=== PATIENT | male | born 1970 | race Hispanic/Latino ===

== ENCOUNTER 2022-04-01 12:09 | Inpatient (IN) | payer SELFPAY ==
[~2022-04-01] VITALS: Ht 184.7 cm; Wt 98.0 kg
[2022-04-01] MEDS ORDERED: MULTIVITAMINS- 12 INJECTION 10 ML, FOLIC ACID MDV 1 MG, THIAMINE HCL INJ 100 MG in SODI... IV ONE (12:30)
[2022-04-01] MEDS ORDERED: SODIUM CHLORIDE 0.9% 1000ML 1,000 ML IV ONE (12:30)
[2022-04-01] MEDS ORDERED: CHLORDIAZEPOXIDE 100 MG AMP IV ONE (12:30)
[2022-04-01 12:34] LABS: BASOPHILS # (AUTO) 0.1 (0.0-0.1); BASOPHILS % 1.9 % (0.0-1.0); EOSINOPHILS # (AUTO) 0.1 (0.0-0.4); EOSINOPHILS % 1.1 % (0.0-6.0); HEMATOCRIT 41.8 % (38.2-49.6); HEMOGLOBIN 14.1 g/dL (14.0-18.0); LYMPHOCYTES # (AUTO) 1.7 (1.0-3.2); LYMPHOCYTES % 22.9 % (18.0-39.1); MEAN CORPUSCULAR HEMOGLOBIN 31.1 pg (28-32); MEAN CORPUSCULAR HGB CONC 33.7 g/dL (31-35); MEAN CORPUSCULAR VOLUME 92.3 fL (81-99); MONOCYTES # (AUTO) 0.7 (0.2-0.8); MONOCYTES % 8.6 % (4.4-11.3); NEUTROPHILS # (AUTO) 4.9 (2.1-6.9); PLATELET COUNT 192 x10e3/uL (140-360); RED BLOOD COUNT 4.53 x10e6/uL (4.3-5.7); RED CELL DISTRIBUTION WIDTH 14.8 % (11.7-14.4)
[2022-04-01 12:40] LABS: INR 1.04; PROTHROMBIN TIME 14.5 seconds (11.9-14.5)
[2022-04-01] MEDS ORDERED: CHLORDIAZEPOXIDE HCL 25 MG CAP PO ONE (12:45)
[2022-04-01 12:47] LABS: ALANINE AMINOTRANSFERASE 32 IU/L (0-55); ALBUMIN 3.5 g/dL (3.5-5.0); ALKALINE PHOSPHATASE 127 IU/L (40-150); ANION GAP 14.4 mmol/L (8-16); BLOOD UREA NITROGEN 5 mg/dL (7-26); BUN/CREATININE RATIO 7 (6-25); CALCIUM 8.3 mg/dL (8.4-10.2); CARBON DIOXIDE 21 mmol/L (22-29); CHLORIDE 104 mmol/L (98-107); CREATININE, SERUM 0.67 mg/dL (0.72-1.25); GLUCOSE 92 mg/dL (74-118); POTASSIUM 3.4 mmol/L (3.5-5.1); SODIUM 136 mmol/L (136-145)
[2022-04-01] MEDS ORDERED: ONDANSETRON HCL INJ 2MG/ML 2ML 2 MG/ML VIAL IV PRN (13:45)
[2022-04-01 15:52] VITALS: BP 138/76
[2022-04-01 16:41] VITALS: BP 138/76
[2022-04-01 16:50] VITALS: BP 138/76
[2022-04-01] MEDS: SODIUM CHLORIDE 0.9% 1000ML 1,000 ML IV SCH ×2 (17:02→21:22)
[2022-04-01] MEDS: LORAZEPAM 1 MG TAB PO PRN ×3 (17:44→19:04)
[2022-04-01] MEDS: CHLORDIAZEPOXIDE HCL 25 MG CAP PO SCH ×2 (17:48→23:51)
[2022-04-01 20:00] VITALS: BP 134/81
[2022-04-01 21:00] VITALS: BP 134/81
[2022-04-01] MEDS: Morphine 2mg Syringe 2 MG/ML SYR IV PRN (23:21)
[2022-04-02] VITALS (8 sets, daily range): BP systolic 125–156; BP diastolic 78–120
[2022-04-02] MEDS: Morphine 2mg Syringe 2 MG/ML SYR IV PRN ×2 (03:40→14:25)
[2022-04-02] MEDS: SODIUM CHLORIDE 0.9% 1000ML 1,000 ML IV SCH ×2 (05:34→21:30)
[2022-04-02] MEDS: CHLORDIAZEPOXIDE HCL 25 MG CAP PO SCH ×3 (05:34→17:36)
[2022-04-02 05:54] LABS: BASOPHILS # (AUTO) 0.1 (0.0-0.1); BASOPHILS % 1.6 % (0.0-1.0); EOSINOPHILS # (AUTO) 0.1 (0.0-0.4); EOSINOPHILS % 1.8 % (0.0-6.0); HEMATOCRIT 41.8 % (38.2-49.6); LYMPHOCYTES # (AUTO) 2.2 (1.0-3.2); MEAN CORPUSCULAR HEMOGLOBIN 30.8 pg (28-32); MEAN CORPUSCULAR HGB CONC 33.5 g/dL (31-35); MEAN CORPUSCULAR VOLUME 91.9 fL (81-99); MONOCYTES # (AUTO) 0.8 (0.2-0.8); NEUTROPHILS # (AUTO) 4.4 (2.1-6.9); NEUTROPHILS % 57.2 % (38.7-80.0); PLATELET COUNT 182 x10e3/uL (140-360); RED BLOOD COUNT 4.55 x10e6/uL (4.3-5.7); RED CELL DISTRIBUTION WIDTH 14.4 % (11.7-14.4)
[2022-04-02] MEDS ORDERED: ACETAMINOPHEN 325 MG TAB PO PRN (06:15)
[2022-04-02 06:21] LABS: ALANINE AMINOTRANSFERASE 27 IU/L (0-55); ALBUMIN 3.2 g/dL (3.5-5.0); ALKALINE PHOSPHATASE 123 IU/L (40-150); ANION GAP 14.1 mmol/L (8-16); BLOOD UREA NITROGEN < 5 mg/dL (7-26); CALCIUM 8.8 mg/dL (8.4-10.2); CARBON DIOXIDE 25 mmol/L (22-29); CHLORIDE 102 mmol/L (98-107); CREATININE, SERUM 0.66 mg/dL (0.72-1.25); GLUCOSE 90 mg/dL (74-118); POTASSIUM 3.1 mmol/L (3.5-5.1); SODIUM 138 mmol/L (136-145)
[2022-04-02 06:24] LABS: BUN/CREATININE RATIO 8 (6-25)
[2022-04-02 08:34] LABS: CLARITY,URINE CLEAR (CLEAR); COLOR,URINE YELLOW (YELLOW)
[2022-04-02 08:35] LABS: KETONES,URINE NEGATIVE (NEGATIVE); LEUKOCYTE ESTERASE ,URINE NEGATIVE (NEGATIVE); NITRITE,URINE NEGATIVE (NEGATIVE); PROTEIN,URINE DIPSTICK NEGATIVE (NEGATIVE)
[2022-04-02 08:36] LABS: URINE UROBILINOGEN 0.2 mg/dL (0.2 - 1)
[2022-04-02 08:49] LABS: WBC,URINE (MAN) 0-5 /HPF (0-5)
[2022-04-02 08:50] LABS: BACTERIA,URINE RARE /HPF; EPITHELIAL CELLS,URINE RARE /LPF
[2022-04-02] MEDS ORDERED: DOCUSATE SODIUM 100 MG CAP PO SCH (09:00)
[2022-04-02] MEDS ORDERED: SENNOSIDES 8.6 MG TAB PO SCH (09:00)
[2022-04-02] MEDS: THIAMINE HCL 100 MG TAB PO SCH (09:37)
[2022-04-02] MEDS ORDERED: NICOTINE 14 MG/EA PATCH TOP SCH (12:00)
[2022-04-02] MEDS ORDERED: ENOXAPARIN SOD INJ 40 MG/0.4 ML SYR SC SCH (17:00)
[2022-04-02] MEDS: LORAZEPAM 1 MG TAB PO PRN (18:52)
[2022-04-03] VITALS: BP 137/91
[2022-04-03] MEDS: CHLORDIAZEPOXIDE HCL 25 MG CAP PO SCH ×2 (00:44→06:42)
[2022-04-03 04:00] VITALS: BP 126/81
[2022-04-03 05:00] LABS: BASOPHILS # (AUTO) 0.1 (0.0-0.1); BASOPHILS % 1.5 % (0.0-1.0); EOSINOPHILS # (AUTO) 0.2 (0.0-0.4); EOSINOPHILS % 2.2 % (0.0-6.0); HEMATOCRIT 40.3 % (38.2-49.6); LYMPHOCYTES # (AUTO) 2.3 (1.0-3.2); LYMPHOCYTES % 33.9 % (18.0-39.1); MEAN CORPUSCULAR HEMOGLOBIN 31.3 pg (28-32); MEAN CORPUSCULAR HGB CONC 34.7 g/dL (31-35); MONOCYTES # (AUTO) 0.7 (0.2-0.8); MONOCYTES % 9.8 % (4.4-11.3); NEUTROPHILS # (AUTO) 3.5 (2.1-6.9); NEUTROPHILS % 52.2 % (38.7-80.0); PLATELET COUNT 165 x10e3/uL (140-360); RED BLOOD COUNT 4.48 x10e6/uL (4.3-5.7); RED CELL DISTRIBUTION WIDTH 14.5 % (11.7-14.4)
[2022-04-03 05:19] LABS: ALANINE AMINOTRANSFERASE 23 IU/L (0-55); ALBUMIN 3.1 g/dL (3.5-5.0); ALBUMIN/GLOBULIN RATIO 0.9 (0.8-2.0); ALKALINE PHOSPHATASE 165 IU/L (40-150); ANION GAP 12.2 mmol/L (8-16); BLOOD UREA NITROGEN < 5 mg/dL (7-26); CARBON DIOXIDE 26 mmol/L (22-29); CHLORIDE 103 mmol/L (98-107); CREATININE, SERUM 0.72 mg/dL (0.72-1.25); GLUCOSE 128 mg/dL (74-118); MAGNESIUM 1.7 MG/DL (1.3-2.1); POTASSIUM 3.2 mmol/L (3.5-5.1); SODIUM 138 mmol/L (136-145)
[2022-04-03] MEDS: SODIUM CHLORIDE 0.9% 1000ML 1,000 ML IV SCH (05:45)
[2022-04-03 05:46] LABS: BUN/CREATININE RATIO 7 (6-25)
[2022-04-03] MEDS ORDERED: CHLORDIAZEPOXID25 MG PO (07:35)
[2022-04-03] MEDS ORDERED: B-1100 MG PO (07:35)
[2022-04-03] MEDS ORDERED: NICODERM CQ1 EAC1 TOP (07:35)
[2022-04-03] MEDS ORDERED: POTASSIUM CHLORIDE 20 MEQ TAB CR PO ONE (07:45)
[2022-04-03] MEDS: THIAMINE HCL 100 MG TAB PO SCH (08:20)
[2022-04-03 08:30] VITALS: BP 120/80
== END 2022-04-03 08:49 | disposition home or self-care (01) | DRG 897 ==
LOC: ER 12:15 → ERHOLD 13:37 → MED/SURG3 15:52
PROVIDERS: ADMIT Internal Medicine; ATTEND Internal Medicine
DX: F10.231 Alcohol dependence with withdrawal delirium (principal); Z59.00 Homelessness unspecified; R60.9 Edema, unspecified; Z20.822 Contact with and (suspected) exposure to COVID-19; F17.210 Nicotine dependence, cigarettes, uncomplicated
CPT/HCPCS: 0223U; 36415; 70450; 71045; 80053; 81001; 83690; 83735; 83880; 84484; 85025; 85610; 93005; 93306; 93970; 94799; 99251; 99284; J1650; J2270; J2405; J3411; J7030